=== PATIENT | female | born 1975 | race Caucasian/White ===

== ENCOUNTER → 2017-08-03 | Outpatient (CLI) | payer BC ==
[2017-08-03 11:35] LABS: Basophils % (A) 0 %; CH 32.5; CHCM 33.2; Eosinophils # (A) 0.1 k/uL (0-0.7); Eosinophils % (A) 1 %; HCT 45.4 % (34.0-46.0); HDW 2.36; HGB 14.3 gm/dL (11.4-16.0); Luc # (Auto) 0.11; Luc % (Auto) 2; Lymphocytes # (A) 2.6 k/uL (1.0-4.8); Lymphocytes % (A) 43 %; MCH 30.9 pg (25.0-35.0); MCHC 31.5 g/dL (31.0-37.0); MCV 98.3 fL (80.0-100.0); Mean Platelet Volume 7.2; Monocytes # (A) 0.3 k/uL (0-1.0); Monocytes % (A) 5 %; Neutrophils # (A) 2.9 k/uL (1.3-7.7); Neutrophils % (A) 49 %; RBC 4.62 m/uL (3.80-5.40); RDW 12.3 % (11.5-15.5); WBC 5.9 k/uL (3.8-10.6); WBC (Perox) 6.04
[2017-08-03 12:01] LABS: ALT 25 U/L (9-52); AST 17 U/L (14-36); Alkaline Phosphatase 48 U/L (38-126); Anion Gap 12 mmol/L; Blood Urea Nitrogen 13 mg/dL (7-17); Calcium 9.6 mg/dL (8.4-10.2); Carbon Dioxide 19 mmol/L (22-30); Chloride 109 mmol/L (98-107); Cholesterol 234 mg/dL (<200); Glucose 83 mg/dL (74-99); HDL Cholesterol 95 mg/dL (40-60); Non-African American GFR(MDRD) >60 (>60 ml/min/1.73 sqM); Potassium 4.6 mmol/L (3.5-5.1); Sodium 140 mmol/L (137-145); Total Bilirubin 0.7 mg/dL (0.2-1.3); Total Protein 7.4 g/dL (6.3-8.2)
== END | disposition home or self-care (01) ==
LOC: LABWHC1 10:35
PROVIDERS: ATTEND Family Medicine
DX: Z00.00 Encounter for general adult medical examination without abnormal findings (principal)
CPT/HCPCS: 36415; 80053; 80061; 84443; 85025

== ENCOUNTER → 2023-08-17 | Outpatient (CLI) | payer BC ==
--- NOTE | 2023-08-18 09:42 | MM ---
Reason for Exam: Screening (asymptomatic). Last mammogram was performed 6 year(s) and 0 month(s) ago. Patient History: Menarche at age 13. First Full-Term at age 18. Other cancer, age 15. Patient used Hormonal Contraceptives for 1 year. Maternal grandmother had breast cancer, age 62. Risk Values: Cleo 5 year model risk: 0.6%. NCI Lifetime model risk: 6.8%. Prior Study Comparison: 08/17/2017 Bilateral Screening Mammogram, [facility]. Tissue Density: The breast tissue is heterogeneously dense. This may lower the sensitivity of mammography. Findings: Analyzed By CAD. There is no suspicious group of microcalcifications or new suspicious mass in either breast. Overall Assessment: Negative, BI-RAD 1 Management: Screening Mammogram of both breasts in 1 year. A clinical breast exam by your physician is recommended on an annual basis and results should be correlated with mammographic findings. Note on Cleo scores and lifetime risk: 1. A Cleo score greater than 3% is considered moderate risk. If this is the case, consider specialist referral to assess eligibility for a risk reducing agent. If overall lifetime risk for the development of breast cancer is 20% or higher, the patient may qualify for future screening with alternating mammogram and breast MRI. Electronically signed and approved by: Dusty Mata D.O.
== END | disposition home or self-care (01) ==
LOC: RADMAMWWP 13:24
PROVIDERS: ATTEND Family Medicine
DX: Z12.31 Encounter for screening mammogram for malignant neoplasm of breast (principal); Z80.3 Family history of malignant neoplasm of breast
CPT/HCPCS: 77067